=== PATIENT | female | born 1950 | race African-American/Black ===

== ENCOUNTER 2018-09-07 05:58 | Day surgery (SDC) | payer MEDICARE, BC ==
--- NOTE | 2018-09-04 19:50 | PREOPHP ---
DATE OF ADMISSION: 09/07/2018 This is a 67-year-old female coming on Wednesday for a D and C hysteroscopy. HISTORY OF PRESENT ILLNESS: This is a 67-year-old female, 3, para 2 with 1 , 2 previ ous C-sections. Last menstrual period was in 2000. The patient is with a history of an early menopa use. She has seen me before in 2012 for evaluation and she was found to have a hypertrophy of the ut erus with possible previous fibroids. The patient later on had been referred for colonoscopy and she was diagnosed with rectal cancer in 2015, at which time she had a very early cancer and she was judie steven with chemoradiation. PET scan also showed hemorrhoid. She had 2 with a tubal ligation . She had back surgery. She had the rectal cancer surgery and she had hemorrhoid surgery. The kathleen ent was placed on Premarin vaginal cream and she had been seen recently for an abnormal Pap smear and UTI. At this time, she is being advised for a D and C due to vaginal bleeding for a few days that h as happened just recently with some menstrual pain and ultrasound shows hypertrophic uterus again and we will sample the endometrium to make sure there is no endometrial cancer. She has a history of an old fibroid as well. The patient is on blood pressure medication for hypertension and medication fo r cholesterol with atorvastatin, is on losartan and hydrochlorothiazide. She is obese. She has no c omplaints of pain. REVIEW OF SYSTEMS: She has hypertension. No history of heart attacks or asthma or lung disease. No history of constipation. No history of endocrine disease and some incontinence when laughing or cou ghing, but not a problem at this time that she is using estrogen cream. SOCIAL HISTORY: No history of smoking. Social drinking. ALLERGIES: SHE HAS NO ALLERGIES. FAMILY HISTORY: Breast cancer, diabetes. PHYSICAL EXAMINATION: VITAL SIGNS: She is 5 feet, 3 inches. She weighs 220 pounds. Blood pressure is 140/80, pulse is 80 , respirations 16. HEAD AND NECK: Normal. CHEST: Clear. HEART: Normal sinus rhythm. LUNGS: Clear. ABDOMEN: Soft, nontender, no masses. Otherwise negative. PELVIC: Vaginally with blood in the vaginal cuff and all fibroid uterus and some vaginal atrophy. N o adnexal mass palpated. EXTREMITIES: Normal. DIAGNOSES: Postmenopausal bleeding, status post colon cancer early post-chemo and radiation, old fib roid uterus, anal cancer and previous hemorrhoid cancer. PLAN: She is undergoing a fractional D and C, hysteroscopy for further workup and followup. She has been advised of the possible risks and possible complication of the procedure with her alternatives and options. Written information was provided. She had no more questions and agreed to go ahead wit h the procedure with full understanding and no more questions. Dictated By: TIMOTHY DE LA TORRE/NTS Conf#: [id number] DID#: [id number]
[2018-09-07] VITALS (11 sets, daily range): BP systolic 115–132; BP diastolic 57–72; PULSE 66–70; RESP 18–22; Ht 160 cm; Wt 97.4 kg
[~2018-09-07] VITALS: Ht 160 cm; Wt 97.4 kg
[~2018-09-07 05:58] MED LIST: ERGO500014 PO; HYDR12.58 PO; LOSA100T15 PO; OMEPRAZOLE PO; PANTOPRAZOLE; TRAV4OP25 LEFT EYE; TRAV4OP25 RIGHT EYE
--- NOTE | 2018-09-07 06:52 | PREAC ---
Date/Time of Note Date/Time of Note DATE: 09/07/18 TIME: 06:49 Anesthesia Eval and Record Evaluation Time Pre-Procedure Interview DATE: 09/07/18 TIME: 06:49 Age 67 Sex female NPO: 8 hrs Preoperative diagnosis postmenopausal bleeding Planned procedure hysteroscopy D and C Past Medical History Past Medical History: Includes Cardio: HTN, Dyslipidemia GI: GERD, Morbid obesity, Other (hx colon cancer ) Surgery & Anesthesia Issues Hx of PONV Meds Anticoagulation: No Beta Caity within 24 hr: No Reason Beta Caity not given: Pt. not on B-Caity Reported Medications [Pantoprazole] No Conflict Check 04/15/16 Ergocalciferol* (Drisdol* (Vitamin D2)) 50,000 Unit Capsule, [address] UNIT PO Q7D, CAP 07/22/15 [Omeprazole] No Conflict Check, PO DAILY 06/06/15 Travoprost* (Travatan*) 0.004%-2.5 Ml Opht, 1 DROP RIGHT EYE HS, EA 10/09/14 Travoprost* (Travatan*) 0.004%-2.5 Ml Opht, 1 DROP LEFT EYE HS, EA 10/09/14 Losartan Potassium* (Losartan Potassium*) 100 Mg Tablet, 100 MG PO DAILY, TAB 10/09/14 Hydrochlorothiazide* (Hydrochlorothiazide*) 12.5 Mg Tablet, 12.5 MG PO DAILY, TAB 10/09/14 Meds reviewed: Yes Allergies Coded Allergies: No Known Allergy (Unverified , 04/15/16) Allergies Reviewed: Yes Labs/Studies Labs Reviewed: Reviewed by anesthesiologist test: N/A Pre-procedure Exam Airway: Adequate mouth opening Mallampati: Mallampati II Teeth: Normal Lung: Normal Heart: Normal ASA Physical Status ASA physical status: 2 Emergency: None Planned Anesthetic General/MAC: Mask, LMA Planned Pain Management Local by surgeon Pre-operative Attestations Prior to commencing anesthesia and surgery, the patient was re-evaluated, there was verification of: *The patient's identity *The results of appropriate recent lab work and preoperative vital signs *The above evaluation not changing prior to induction *Anesthetic plan, risk benefits, alternative and complications discussed with patient/family; questions answered; patient/family understands, accepts and wishes to proceed. JOSE ALFREDO ALVARADO Sep 07, 2018 06:52
[2018-09-07] MEDS ORDERED: LOSA1TAB28 PO (06:57)
[2018-09-07] MEDS ORDERED: BIMA2.5D BOTH EYES (06:57)
[2018-09-07] MEDS ORDERED: ATOR20TA38 PO (06:58)
[2018-09-07] MEDS ORDERED: PANT40TA3 PO (06:58)
[2018-09-07] MEDS ORDERED: MAGN500C PO (06:59)
[2018-09-07] MEDS ORDERED: CYAN100T PO (06:59)
[2018-09-07] MEDS ORDERED: UBID100C24 PO (06:59)
[2018-09-07] MEDS ORDERED: EPINEPHrine 0.1 MG/ML SYG ONE (07:00)
[2018-09-07] MEDS ORDERED: ERGO500013 PO (07:00)
[2018-09-07] MEDS ORDERED: LIDOCAINE 2% (SDV) 5 ML INJ ONE (07:01)
[2018-09-07] MEDS ORDERED: PROPOFOL 20 ML ONE (07:01)
[2018-09-07] MEDS ORDERED: FENTAnyl 50 MCG/ML VIAL ONE (07:01)
[2018-09-07] MEDS ORDERED: CEFAZOLIN 1 GM INJ ONE (07:01)
[2018-09-07] MEDS ORDERED: OXYCODONE/ACETAMINOPHEN (5/325) TAB PO PRN ×2 (07:30)
[2018-09-07] MEDS ORDERED: FENTAnyl 50 MCG/ML VIAL IV PRN ×3 (07:30)
[2018-09-07] MEDS ORDERED: MEPERIDINE 25 MG INJ IV PRN (07:30)
[2018-09-07] MEDS ORDERED: ONDANSETRON 4 MG INJ IV PRN (07:30)
--- NOTE | 2018-09-07 07:47 | HPN ---
Date/Time of Note Date/Time of Note DATE: 09/07/18 TIME: 07:46 Interval H&P Admission Note Pt. seen H&P reviewed: No system changes TIMOTHY VENTURA MD Sep 07, 2018 07:47
[2018-09-07] MEDS ORDERED: DEXAMETHASONE 4 MG/ML 5 ML INJ ONE (07:58)
[2018-09-07] MEDS ORDERED: METOCLOPRAMIDE 10 MG INJ ONE (07:58)
[2018-09-07] MEDS ORDERED: ONDANSETRON 4 MG INJ ONE (07:58)
[2018-09-07] MEDS ORDERED: FAMOTIDINE 20 MG INJ ONE (07:58)
--- NOTE | 2018-09-07 09:25 | NUR ---
ADMIT RR RECEIVED PT FROM OR S.P D AND C/HYSTERECTOMY. NO DRAINAGE AT THIS TIME. WILL CONTINUE MONITORING. PT C/O PAIN WILL MEDICATE. IV IS ON LEFT HAND INTACT.
--- NOTE | 2018-09-07 09:37 | PD.PPDC ---
NEW VEHICLE SALES CONSULTANT Discharge Instruction Condition [id number] Patient Condition: [id number] Good Diet [id number] Diet: Farbw4o Resume Regular Diet Activity/Restrictions [id number] Activity: Ddriv9m Normal Activity May Shower [id number] Restrictions: Vndix8g No Exercising No Lifting No Driving No Sexual Activity Nothing in the Vagina No Thorp No Tampons, douche Follow-up Follow-up with Physician: 2, Week/Weeks Return to clinic for [id number] CERTIFIED CREDIT COUNSELOR Instructions: [id number] Fever greater than 101 Chills Worsening abdominal pain Excessive Vaginal Bleeding More than 2 pads per hour Unable to tolerate diet TIMOTHY VENTURA MD Sep 07, 2018 09:37
[2018-09-07] MEDS ORDERED: KETOROLAC 30 MG INJ IV STA (09:48)
--- NOTE | 2018-09-07 09:48 | SIPON ---
Date/Time of Note Date/Time of Note DATE: 09/07/18 TIME: 09:38 Operative Report Preoperative Diagnosis Postmenopausal bleeding old fibroid uterus History of colon cancer and anal cancer Hemorrhoids Postoperative Diagnosis Same Operation/Procedure Performed Fractional D&C hysteroscopy ablation with true clear hysteroscope Surgeon see signature line anesthesiologist assistant certified None Anesthesia: general Estimated blood loss: minimal Transfusion Required none Specimen Endometrial contents Grafts/Implants none Complications none TIMOTHY VENTURA MD Sep 07, 2018 09:48
--- NOTE | 2018-09-07 09:50 | PAC ---
Date/Time of Note Date/Time of Note DATE: 09/07/18 TIME: 09:49 Post-Anesthesia Notes Post-Anesthesia Note Last documented vital signs Vital Signs Date Temp Pulse Resp B/P (MAP) Pulse Ox O2 O2 Flow FiO2 Time Delivery Rate 09/07/18 98.3 09:29 09/07/18 70 115/63 100 Nasal 09:25 (80) Cannula 09/07/18 18 06:20 Activity: WNL Respiratory function: WNL Cardiovascular function: WNL Mental status: Baseline Pain reasonably controlled: Yes Hydration appropriate: Yes Nausea/Vomiting absent: Yes JOSE ALFREDO ALVARADO Sep 07, 2018 09:50
--- NOTE | 2018-09-07 11:41 | OPR ---
DATE OF OPERATION: 09/07/2018 PROCEDURE: Fraction D and C and hysteroscopy with Truclear hysteroscope ablation of the endometrium. PREOPERATIVE DIAGNOSES: Postmenopausal bleeding, history of colon cancer, anal cancer, old fibroid u terus, hemorrhoids. POSTOPERATIVE DIAGNOSES: Postmenopausal bleeding, history of colon cancer, anal cancer, old fibroid uterus, hemorrhoids. ANESTHESIOLOGIST: RERE Mariscal. ANESTHESIA: General anesthesia. COMPLICATIONS: None. DESCRIPTION OF PROCEDURE: The patient was given general anesthesia, placed in the lithotomy position . The perineal and vaginal area were prepped and draped. Examination under anesthesia revealed that there was marked atrophy of the vagina. Cervix was very small. The uterus was about 7 weeks' size, retroverted with filling of fibroids in the myometrium. Adnexa were nonpalpable. The cervix was he ld with a forceps. The endocervical curettage was done. The uterus was sounded to 10 cm in length a nd the dilatation of the cervix was done with up to 7 mm. The Truclear hysteroscope was placed in an d the visualization of the endometrium revealed that there were a couple of polyps inside the cavity with no major hyperplasia of the endometrium. Those polyps were absorbed with the trochlear machine and the ablation of the cavity was done anteriorly, posteriorly, laterally and in the fundus, obtaini ng some tissue for histopathology. The procedure was finished by removing all the instruments. The patient tolerated the procedure well and left the OR awake and stable. Sponge counts, instrument cou nts were correct. Intravenous antibiotics were given for prophylaxis and the patient left the OR lance ke and stable. Dictated By: TIMOTHY DE LA TORRE/ML Conf#: [id number] DID#: [id number]
== END 2018-09-07 11:00 | disposition home or self-care (01) ==
LOC: SDS 05:58
PROVIDERS: ATTEND Obstetrics & Gynecology
DX: N95.0 Postmenopausal bleeding (principal); I10 Essential (primary) hypertension; E78.5 Hyperlipidemia, unspecified; E66.01 Morbid (severe) obesity due to excess calories; Z68.38 Body mass index [BMI] 38.0-38.9, adult
CPT/HCPCS: 58558; 88305; 93005; J0171; J0690; J1100; J2175; J2405; J2765; J3010